=== PATIENT | female | born 1995 | race Caucasian/White ===

== ENCOUNTER 2017-01-22 18:18 | Emergency (ER) | payer MEDICAID, OTHER ==
[2017-01-22] MEDS ORDERED: NACL 0.9% 500 ML 500 ML IV ONE (18:48)
[2017-01-22 19:14] LABS: Basophils % (Auto) 0.2 % (0.0-1.8); Eosinophils % (Auto) 0.5 % (0.0-4.3); Hematocrit 38.1 % (30.3-42.9); Hemoglobin 11.9 gm/dl (10.1-14.3); Mean Corpuscular HGB Conc 31 % (30-34); Mean Corpuscular Hemoglobin 22 pg (28-32); Mean Corpuscular Volume 69 fl (79-97); Platelet Count 392 K/mm3 (140-440); Red Blood Count 5.51 M/mm3 (3.65-5.03); Red Cell Distribution Width 16.9 % (13.2-15.2)
[2017-01-22 19:23] LABS: INR 1.01 (0.87-1.13)
[2017-01-22] MEDS ORDERED: TYLENOL PO ONE (19:33)
[2017-01-22 19:35] LABS: Alanine Aminotransferase 15 units/L (7-56); Albumin/Globulin Ratio 1.6 %; Alkaline Phosphatase 82 units/L (35-129); Anion Gap 23 mmol/L; BUN/Creatinine Ratio 22; Blood Urea Nitrogen 11 mg/dL (7-17); Calcium 9.4 mg/dL (8.4-10.2); Carbon Dioxide 23 mmol/L (22-30); Chloride 94.7 mmol/L (98-107); Glucose 115 mg/dL (65-100); Sodium 137 mmol/L (137-145); Total Protein 8.2 g/dL (6.3-8.2)
[2017-01-22] MEDS ORDERED: TYLENOL ONE (19:36)
--- NOTE | 2017-01-22 20:47 | XRay Report ---
FINAL REPORT PROCEDURE: XR CHEST 1V AP TECHNIQUE: Chest radiograph anteroposterior view. CPT 89517 HISTORY: possible Sepsis COMPARISON: No prior studies are available for comparison. FINDINGS: Heart: Normal. Mediastinum/Vessels: Normal. Lungs/Pleural space: No infiltrate, effusion, or pneumothorax is seen. Bony thorax: No acute osseous abnormality. Life support devices: None. IMPRESSION: No radiographic evidence of acute cardiopulmonary abnormality.
--- NOTE | 2017-01-22 23:02 | Emergency Department Report ---
ED N/V/D HPI - General Chief complaint: Nausea/Vomiting/Diarrhea Stated complaint: VOMITING,ARM AND LEG PAIN Time Seen by Provider: 01/22/17 22:50 Source: patient Mode of arrival: Ambulatory Limitations: No Limitations - History of Present Illness Initial comments: Patient is a 21-year-old female with no past medical history who presents with nausea vomiting and diarrhea. Patient states that her symptoms have been going on for the last couple of days. She states that she is having pain throughout her body and her pain is worse in her legs. Illicit achy type of pain nothing makes it better or worse patient denies having any headache. She states that she's been febrile and she has nausea and vomiting her vomiting is nonbloody and nonbilious. Patient has been having diarrhea but her diarrhea is nonbloody. - Related Data Home Medications Medication Instructions Recorded Confirmed Last Taken Labetalol [Normodyne] 200 mg PO BID 05/24/15 06/13/15 06/13/15 07:30 1 Pnv No.95/Ferrous Fum/Folic AC 1 each PO DAILY 06/13/15 06/13/15 06/12/15 07:30 [Prenavite Tablet] 1 Previous Rx's Medication Instructions Recorded Last Taken Type Ibuprofen [Motrin 800 MG tab] 800 mg PO TID PRN #30 tablet 06/13/15 Unknown Rx oxyCODONE /ACETAMINOPHEN [Percocet 1 tab PO Q4HR #30 tablet 06/13/15 Unknown Rx 5/325 mg] Naproxen 250 mg PO BID #20 tablet 01/23/17 Unknown Rx Ondansetron [Zofran Odt] 4 mg PO Q6HR PRN #15 tab.rapdis 01/23/17 Unknown Rx Allergies Allergy/AdvReac Type Severity Reaction Status Date / Time No Known Allergies Allergy Verified 06/13/15 09:46 ED Review of Systems ROS: Stated complaint: VOMITING,ARM AND LEG PAIN Other details as noted in HPI Constitutional: denies: chills, fever Eyes: denies: eye pain, eye discharge, vision change ENT: denies: ear pain, throat pain Respiratory: denies: cough, shortness of breath, wheezing Cardiovascular: denies: chest pain, palpitations Endocrine: no symptoms reported Gastrointestinal: nausea, vomiting, diarrhea. denies: abdominal pain Genitourinary: denies: urgency, dysuria, discharge Musculoskeletal: denies: back pain, joint swelling, arthralgia Skin: denies: rash, lesions Neurological: denies: headache, weakness, paresthesias Psychiatric: denies: anxiety, depression Hematological/Lymphatic: denies: easy bleeding, easy bruising ED Past Medical Hx - Past Medical History Hx Hypertension: Yes (on labetalol) Hx Congestive Heart Failure: No Hx Diabetes: No Hx Deep Vein Thrombosis: No Hx Renal Disease: No Hx Sickle Cell Disease: No Hx Seizures: Yes (2010) Hx Asthma: No Hx COPD: No Hx HIV: No - Surgical History Additional Surgical History: - Social History Smoking Status: Never Smoker Substance Use Type: None - Medications Home Medications: Home Medications Medication Instructions Recorded Confirmed Last Taken Type Labetalol [Normodyne] 200 mg PO BID 05/24/15 06/13/15 06/13/15 07:30 History 1 Ibuprofen [Motrin 800 MG tab] 800 mg PO TID PRN #30 tablet 06/13/15 Unknown Rx Pnv No.95/Ferrous Fum/Folic AC 1 each PO DAILY 06/13/15 06/13/15 06/12/15 07:30 History [Prenavite Tablet] 1 oxyCODONE /ACETAMINOPHEN [Percocet 1 tab PO Q4HR #30 tablet 06/13/15 Unknown Rx 5/325 mg] Naproxen 250 mg PO BID #20 tablet 01/23/17 Unknown Rx Ondansetron [Zofran Odt] 4 mg PO Q6HR PRN #15 tab.rapdis 01/23/17 Unknown Rx ED Physical Exam - General Limitations: No Limitations General appearance: alert, in no apparent distress - Head Head exam: Present: atraumatic, normocephalic - Eye Eye exam: Present: normal appearance - ENT ENT exam: Present: mucous membranes moist - Neck Neck exam: Present: normal inspection - Respiratory Respiratory exam: Present: normal lung sounds bilaterally. Absent: respiratory distress - Cardiovascular Cardiovascular Exam: Present: regular rate, normal rhythm. Absent: systolic murmur, diastolic murmur, rubs, gallop - GI/Abdominal GI/Abdominal exam: Present: soft, normal bowel sounds - Extremities Exam Extremities exam: Present: normal inspection - Back Exam Back exam: Present: normal inspection - Neurological Exam Neurological exam: Present: alert, oriented X3 - Psychiatric Psychiatric exam: Present: normal affect, normal mood - Skin Skin exam: Present: warm, dry, intact, normal color. Absent: rash ED Course Vital Signs 01/22/17 01/22/17 01/22/17 18:44 22:56 23:01 Temperature 100.3 F H Pulse Rate 144 H 123 H Respiratory 22 22 Rate Blood Pressure 153/98 136/80 136/80 O2 Sat by Pulse 100 Oximetry 01/22/17 01/22/17 01/22/17 23:02 23:15 23:21 Temperature Pulse Rate 124 H 128 H 125 H Respiratory 28 H 26 H 29 H Rate Blood Pressure 136/80 136/80 136/80 O2 Sat by Pulse Oximetry 01/22/17 01/22/17 01/22/17 23:22 23:31 23:45 Temperature Pulse Rate 120 H 126 H Respiratory 20 25 H 28 H Rate Blood Pressure 136/80 136/80 O2 Sat by Pulse 98 Oximetry 01/23/17 01/23/17 00:00 00:15 Temperature Pulse Rate 122 H 122 H Respiratory 17 28 H Rate Blood Pressure 129/78 129/78 O2 Sat by Pulse Oximetry ED Medical Decision Making - Lab Data Result diagrams: 01/22/17 18:53 01/22/17 18:53 Lab Results 01/22/17 01/22/17 01/22/17 Range/Units 18:53 18:53 18:53 WBC 10.0 (4.5-11.0) K/mm3 RBC 5.51 H (3.65-5.03) M/mm3 Hgb 11.9 (10.1-14.3) gm/dl Hct 38.1 (30.3-42.9) % MCV 69 L (79-97) fl MCH 22 L (28-32) pg MCHC 31 (30-34) % RDW 16.9 H (13.2-15.2) % Plt Count 392 (140-440) K/mm3 Lymph % (Auto) 7.7 L (13.4-35.0) % [place] % (Auto) 3.6 (0.0-7.3) % Eos % (Auto) 0.5 (0.0-4.3) % Baso % (Auto) 0.2 (0.0-1.8) % Lymph # 0.8 L (1.2-5.4) K/mm3 [place] # 0.4 (0.0-0.8) K/mm3 Eos # 0.1 (0.0-0.4) K/mm3 Baso # 0.0 (0.0-0.1) K/mm3 Seg Neutrophils % 88.0 H (40.0-70.0) % Seg Neutrophils # 8.8 H (1.8-7.7) K/mm3 PT 13.8 (12.2-14.9) Sec. INR 1.01 (0.87-1.13) VBG pH (7.320-7.420) Sodium 137 (137-145) mmol/L Potassium 4.0 (3.6-5.0) mmol/L Chloride 94.7 L (98-107) mmol/L Carbon Dioxide 23 (22-30) mmol/L Anion Gap 23 mmol/L BUN 11 (7-17) mg/dL Creatinine 0.5 L (0.7-1.2) mg/dL Estimated GFR > 60 ml/min BUN/Creatinine Ratio 22 % Glucose 115 H (65-100) mg/dL Lactic Acid (0.7-2.0) mmol/L Calcium 9.4 (8.4-10.2) mg/dL Total Bilirubin 0.90 (0.1-1.2) mg/dL AST 18 (5-40) units/L ALT 15 (7-56) units/L Alkaline Phosphatase 82 (35-129) units/L Total Protein 8.2 (6.3-8.2) g/dL Albumin 5.0 (3.9-5) g/dL Albumin/Globulin Ratio 1.6 % 01/22/17 01/22/17 01/22/17 Range/Units 18:53 18:53 21:46 WBC (4.5-11.0) K/mm3 RBC (3.65-5.03) M/mm3 Hgb (10.1-14.3) gm/dl Hct (30.3-42.9) % MCV (79-97) fl MCH (28-32) pg MCHC (30-34) % RDW (13.2-15.2) % Plt Count (140-440) K/mm3 Lymph % (Auto) (13.4-35.0) % [place] % (Auto) (0.0-7.3) % Eos % (Auto) (0.0-4.3) % Baso % (Auto) (0.0-1.8) % Lymph # (1.2-5.4) K/mm3 [place] # (0.0-0.8) K/mm3 Eos # (0.0-0.4) K/mm3 Baso # (0.0-0.1) K/mm3 Seg Neutrophils % (40.0-70.0) % Seg Neutrophils # (1.8-7.7) K/mm3 PT (12.2-14.9) Sec. INR (0.87-1.13) VBG pH 7.336 (7.320-7.420) Sodium (137-145) mmol/L Potassium (3.6-5.0) mmol/L Chloride (98-107) mmol/L Carbon Dioxide (22-30) mmol/L Anion Gap mmol/L BUN (7-17) mg/dL Creatinine (0.7-1.2) mg/dL Estimated GFR ml/min BUN/Creatinine Ratio % Glucose (65-100) mg/dL Lactic Acid 1.40 2.30 H* (0.7-2.0) mmol/L Calcium (8.4-10.2) mg/dL Total Bilirubin (0.1-1.2) mg/dL AST (5-40) units/L ALT (7-56) units/L Alkaline Phosphatase (35-129) units/L Total Protein (6.3-8.2) g/dL Albumin (3.9-5) g/dL Albumin/Globulin Ratio % - EKG Data -: EKG Interpreted by Pa - EKG Data 01/23/17 01:08 EKG shows rate of 136 and a sinus rhythm no axis deviation no ST segment elevation or T-wave inversion normal axis. - Radiology Data Radiology results: report reviewed, image reviewed Chest x-ray: Shows no acute cardiopulmonary disease - Medical Decision Making Chief medical diagnosis: Dehydration secondary to viral illness Differential medical diagnosis: Gastroenteritis, pneumonia CBC, CMP, chest x-ray, EKG IV fluid bolus, IV Zofran and Toradol. Agents heart rate has improved after IV fluid boluses patient states that she feels better and has tolerated by mouth in the emergency department patient most likely has viral illness given her imaging and laboratory studies are mostly unremarkable. He has a lactic acid of 2.3. This was after repeat this is most likely due to dehydration patient has no signs of sepsis at this and does not need a repeat lactic acid as she is feeling better and due to her age she would not benefit from another lactic acid level after fluid bolus as she wants to leave the emergency department. I'll send patient home with Zofran and naproxen discussed with patient additional verbal discharge instructions were given. Critical care attestation.: If time is entered above; I have spent that time in minutes in the direct care of this critically ill patient, excluding procedure time. ED Disposition Clinical Impression: Viral illness, Nausea vomiting and diarrhea Disposition: DC- TO HOME OR SELFCARE Is pt being admited?: No Does the pt Need Aspirin: No Condition: Stable Instructions: Acute Nausea and Vomiting (ED) Prescriptions: Naproxen 250 mg PO BID #20 tablet Ondansetron [Zofran Odt] 4 mg PO Q6HR PRN #15 tab.rapdis PRN Reason: Nausea Referrals: PRIMARY CAREMD [Primary Care Provider] - 3-5 Days MILAN CALVO MD [Staff Physician] - 3-5 Days
[2017-01-22] MEDS ORDERED: ZOFRAN IV ONE (23:09)
[2017-01-22] MEDS ORDERED: TORADOL IV ONE (23:09)
[2017-01-22] MEDS ORDERED: NACL 0.9% 1000 ML 1,000 ML IV ONE (23:09)
[2017-01-23 01:21] VITALS: BP 118/64
== END 2017-01-23 01:22 | disposition home or self-care (01) ==
LOC: ED 18:18
DX: B34.9 Viral infection, unspecified (principal); R11.2 Nausea with vomiting, unspecified; R19.7 Diarrhea, unspecified; I10 Essential (primary) hypertension
CPT/HCPCS: 36415; 71010; 80053; 82140; 82805; 85025; 85610; 87040; 93005; 93010; 96361; 96374; 96375; 99284; J1885; J2405; J7030